=== PATIENT | male | born 1930 | race Caucasian/White ===

== ENCOUNTER 2017-10-02 05:53 | Outpatient (CLI) | payer MEDICARE, MEDICAID ==
[~2017-10-02] VITALS: Ht 160 cm; Wt 72.1 kg
[2017-10-02] MEDS ORDERED: TERA5CAP3 PO (14:42)
[2017-10-02] MEDS ORDERED: DUTA0.5C14 PO (14:42)
[2017-10-02] MEDS ORDERED: OMEP20TA7 PO (14:42)
== END 2017-10-02 14:44 ==
LOC: PREOP 05:53
PROVIDERS: ATTEND Internal Medicine Critical Care Medicine
DX: Z01.818 Encounter for other preprocedural examination (principal); D49.1 Neoplasm of unspecified behavior of respiratory system; R06.00 Dyspnea, unspecified; R09.02 Hypoxemia

== ENCOUNTER 2017-10-09 07:23 | Inpatient (IN) | payer MEDICARE, MEDICAID ==
[2017-10-09] VITALS (15 sets, daily range): BP systolic 100–125; BP diastolic 66–92
[~2017-10-09] VITALS: Ht 160 cm; Wt 68.5 kg
[~2017-10-09 07:23] MED LIST: DUTA0.5C14 PO; OMEP20TA7 PO; TERA5CAP3 PO
[2017-10-09] MEDS ORDERED: LACTATED RINGERS 1,000 ML IV ONE (07:53)
[2017-10-09] MEDS ORDERED: proPOfol 200 MG/20 ML (DIPRIVAN) VIAL IV ONE (07:53)
[2017-10-09] MEDS ORDERED: ROCURONIUM 50 MG/5 ML (ZEMURON) VIAL IV ONE (07:54)
[2017-10-09] MEDS ORDERED: ONDANSETRON 4 MG/2 ML (SDV) Z0FRAN ONE (07:54)
[2017-10-09] MEDS ORDERED: fentaNYL INJECTION 100 MCG/2 ML AMP ONE (07:54)
[2017-10-09] MEDS ORDERED: ACET-575 PO (07:55)
[2017-10-09] MEDS ORDERED: OMG1KC PO (07:55)
[2017-10-09] MEDS ORDERED: ASPI-999 PO (07:55)
[2017-10-09] MEDS ORDERED: LACTATED RINGERS 1,000 ML IV STA (07:55)
[2017-10-09] MEDS ORDERED: ACET-1783 PO (07:55)
--- NOTE | 2017-10-09 08:59 | Progress Note-Pre Operative ---
Pre-Operative Progress Note H&P Reviewed The H&P was reviewed, patient examined and no changes noted. Date Seen by Provider: Oct 09, 2017 Time Seen by Provider: 08:58 Date H&P Reviewed: Oct 09, 2017 Time H&P Reviewed: 08:59 Pre-Operative Diagnosis: lung mass NII DOOLEY DO Oct 09, 2017 08:59
[2017-10-09] MEDS ORDERED: NS IV 1000 ML 1,000 ML IV SCH (09:39)
[2017-10-09] MEDS ORDERED: ENOXAPARIN 40 MG/0.4 ML (LOVENOX) SYR SC SCH (10:00)
[2017-10-09 10:07] LABS: BASOPHILS % (AUTO) 0 % (0-10); EOSINOPHILS # (AUTO) 0.1 10^3/uL (0.0-0.3); EOSINOPHILS % (AUTO) 1 % (0-10); LYMPHOCYTES # (AUTO) 0.8 X 10^3 (1.0-4.0); LYMPHOCYTES % (AUTO) 13 % (12-44); MEAN CORPUSCULAR HEMOGLOBIN 29 PG (25-34); MEAN CORPUSCULAR HGB CONC 31 G/DL (32-36); MEAN CORPUSCULAR VOLUME 94 FL (80-99); MEAN PLATELET VOLUME 9.9 FL (7.4-10.4); MONOCYTES # (AUTO) 0.5 X 10^3 (0.0-1.0); MONOCYTES % (AUTO) 9 % (0-12); NEUTROPHILS # (AUTO) 4.8 X 10^3 (1.8-7.8); NEUTROPHILS % (AUTO) 78 % (42-75); PLATELET COUNT 169 10^3/uL (130-400); RED BLOOD COUNT 3.84 10^6/uL (4.35-5.85); RED CELL DISTRIBUTION WIDTH 15.7 % (10.0-14.5); WHITE BLOOD COUNT 6.1 10^3/uL (4.3-11.0)
[2017-10-09 10:25] LABS: ALANINE AMINOTRANSFERASE 19 U/L (0-55); ALBUMIN 3.4 GM/DL (3.2-4.5); ANION GAP 9 MMOL/L (5-14); ASPARTATE AMINO TRANSFERASE 21 U/L (5-34); BILIRUBIN,TOTAL 0.8 MG/DL (0.1-1.0); BLOOD UREA NITROGEN 17 MG/DL (7-18); BUN/CREATININE RATIO 17; CALCIUM 9.8 MG/DL (8.5-10.1); CARBON DIOXIDE 21 MMOL/L (21-32); CHLORIDE 105 MMOL/L (98-107); CREATININE SERUM 1.02 MG/DL (0.60-1.30); GFR ESTIMATED > 60; GLUCOSE 114 MG/DL (70-105); MAGNESIUM 1.8 MG/DL (1.8-2.4); POTASSIUM 4.2 MMOL/L (3.6-5.0); SODIUM 135 MMOL/L (135-145); TOTAL PROTEIN 6.9 GM/DL (6.4-8.2)
[2017-10-09 10:31] LABS: TROPONIN I < 0.30 NG/ML (<0.30)
--- NOTE | 2017-10-09 10:41 | Diagnostic Imaging Report ---
INDICATION: Shortness of breath. COMPARISON: None. FINDINGS: Upright portable view of the chest is obtained. Heart size is upper limits of normal. No pulmonary vascular congestion. There is no pneumothorax or pleural fluid suspected. There is, however, large area of consolidation involving the right mid and lower lung and there are background diffuse interstitial changes throughout both lungs which may represent diffuse interstitial infiltrate or edema. IMPRESSION: There is fairly extensive consolidation in the right middle and lower lobe consistent with pneumonia. Diffuse interstitial changes may be related to underlying interstitial edema or additional interstitial infiltrate. Short-term followup study is recommended Dictated by: Dictated on workstation # [id number]
[2017-10-09] MEDS ORDERED: MAGNESIUM 1 GM/100 ML IVPB 100 ML IV ONE (11:00)
--- NOTE | 2017-10-09 11:08 | Pulmonary Consultation ---
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 During lidocain SVN prior to sedation pt started having runs of Vtach up to 20 beat runs. PT denied CP or worsening SOB. Procedure was stopped pt did not receive sedation. I discussed patient with hospitalist group and Dr. Thompson and we decided to admit pt to ICU and check labs, EKG and echocardiogram. I am consulted for pulmonary management. Allergies and Home Medications Allergies Coded Allergies: No Known Drug Allergies (Unverified , 10/02/17) Home Medications Acetaminophen 650 Mg Tablet.er, 650 MG PO Q8H, (Reported) Acetaminophen/Diphenhydramine 1 Each Tablet, 2 EACH PO HS, (Reported) Aspirin 81 Mg Tab.chew, 81 MG PO DAILY, (Reported) Dutasteride 0.5 Mg Capsule, 0.5 MG PO DAILY, (Reported) [place] 3 Polyunsat Fatty Acids 1,000 Mg Cap, 1,000 MG PO DAILY, (Reported) Omeprazole 20 Mg Tablet.dr, 20 MG PO BID, (Reported) Terazosin HCl 5 Mg Capsule, 5 MG PO HS, (Reported) Past Qebcnkd-Udgfjv-Efjbxh Hx Patient Social History Alcohol Use: Denies Use Recreational Drug Use: No Smoking Status: Former Smoker Former Smoker, Quit: Oct 02, 1998 Recent Foreign Travel: No Contact w/Someone Who Travel: No Recent Infectious Disease Expo: No Recent Hopitalizations: No Physical Abuse: No Sexual Abuse: No Mistreated: No Fear: No Immunizations Up To Date Date of Pneumonia Vaccine: Oct 02, 2015 Date of Influenza Vaccine: Aug 12, 2017 Seasonal Allergies Seasonal Allergies: Yes Surgeries Surgeries: Gallbladder Respiratory Respiratory Disorders: Pneumonia Genitourinary Genitourinary Disorders: Prostate Problems Musculoskeletal Musculoskeletal Disorders: Arthritis HEENT Hearing Impairment: Hard of Hearing Cancer Cancer: Colon Type of Tx Receive: Surgical Intervention Review of Systems Time Seen by Provider: 11:15 Constitutional: Weakness, Malaise, No: Fever, Chills, Sweats, Other Eyes: No: Pain, Vision change, Conjunctivae inflammation, Eyelid inflammation, Other, Redness ENT: No: Ear pain, Ear discharge, Nose pain, Nose discharge, Nose congestion, Mouth pain, Mouth swelling, Throat pain, Throat swelling, Other Respiratory: Cough, Dry, Shortness of breath, SOB with excertion, Wheezing Cardiovascular: No: Chest Pain, Palpitations, Orthopnea, Paroxysmal Noc. Dyspnea, Edema, Lt Headedness, Other Neurological: Weakness Exam Exam Vital Signs Date Time Temp Pulse Resp B/P (MAP) Pulse Ox O2 Delivery O2 Flow Rate FiO2 10/09/17 09:00 24 10/09/17 09:00 97 Nasal Cannula 3.00 10/09/17 07:48 98.0 95 20 124/77 97 Room Air General Appearance: No Apparent Distress, WD/WN Neck: Full Range of Motion, Non Tender, Supple Respiratory: No Respiratory Distress, Decreased Breath Sounds Gastrointestinal: normal bowel sounds, non tender, soft, no organomegaly Neurologic/Psychiatric: Alert, Oriented x3 Skin: Warm/Dry, Pallor Lymphatic: No Adenopathy Results Lab Laboratory Tests 10/09/17 09:55 Assessment/Plan Assessment/Plan RML bronchus with MLA -Bronchoscopy with EBUS was cancelled secondary to Vtach runs -Check CXR and labs V tach -Cardiology is consulted -Check troponins, Echocardiogram, EKG and basic labs Hx of COPD -currently baseline continue to monitor 255 Clinical Quality Measures DVT/VTE Risk/Contraindication: Risk Factor Score Per Nursin RFS Level Per Nursing on Admit: 2=Moderate NII DOOLEY DO Oct 09, 2017 11:08
[2017-10-09] MEDS ORDERED: meTOprolol TARTRATE 25 MG (LOPRESSOR) TABLET PO NR (11:24)
--- NOTE | 2017-10-09 11:55 | History & Physical-Hospitalist ---
HPI History of Present Illness: HPI/Chief Complaint CC: Lung Mass with V-tach during pre-op for bronchoscopy HPI: This is a 86 yoWM pt who was transported to endoscopy with Dr. Roca at 0900 this am, but did not have the procedure due to runs of V-tach. Pt was admitted for cardiac monitoring. Doctor Chanelle Review: Pt was to have a bronchoscopy this am. Pt was having runs of detac before procedure. Labs were ordered to work this up Pt's supervisor burling and joining in Lauren, PCP in [place] If Dr. Nguyen is okay with procedure, Dr. Roca is okay to do it Pt is from [place], [place] Pt Review: Pt states he lives in [place], [place] with his and grandchildren. Pt states his has a brain tumor Pt states he has a home health nurse that sees him twice weekly Pt confirms Dr. Damian as PCP. Pt denies experiencing pain currently or flutter in his chest Physical exam stable. Lungs sound perfect Pt denies smoking or ETOH usage. 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 Pt states he has been since [address] was [address] Nguyen will see him and and echo will be done Pt confirms continuous O2 at home since 08/24/17 Scribed by Jacinta Blanco under the direct supervision of Dr. Israel. Source: patient Exam Limitations: no limitations Date Seen 10/09/17 Time Seen by Provider: 11:00 Attending Physician Declan Roca DO PCP Ady Damain MD Referring Physician Date of Admission Oct 09, 2017 at 09:15 Home Medications & Allergies Home Medications Reviewed patient Home Medication Reconciliation Form Allergies Allergies Coded Allergies No Known Drug Allergies (Jurlyoweqq25/22/17) Past Blmiyoo-Ytiavy-Wegnns Hx Patient Social History Marrital Status: Employed/Student: retired (farming) Alcohol Use: Denies Use Recreational Drug Use: No Smoking Status: Former Smoker Former Smoker, Quit: Oct 02, 1998 Recent Foreign Travel: No Contact w/other who traveled: No Recent Hopitalizations: No Recent Infectious Disease Expo: No Immunizations Up To Date Date of Pneumonia Vaccine: Oct 02, 2015 Date of Influenza Vaccine: Aug 12, 2017 Seasonal Allergies Seasonal Allergies: Yes Surgeries Yes Gallbladder Respiratory Yes COPD Cardiovascular Yes High Cholesterol Neurological No Genitourinary Yes Benign Prostatic Hyperpl, Prostate Problems Gastrointestinal Yes Gastroesophageal Reflux Musculoskeletal Yes Arthritis Endocrine History of Endocrine Disorders: No HEENT History of HEENT Disorders: No Hearing Impairment: Hard of Hearing Cancer Yes Colon Type of Treatment: Surgical Intervention Psychosocial History of Psychiatric Problem: No Integumentary History of Skin or Integumenta: No Blood Transfusions History of Blood Disorders: No Reviewed Nursing Assessment Reviewed/Agree w Nursing PMH: Yes Review of Systems Constitutional: see HPI EENTM: no symptoms reported Respiratory: short of breath, wheezing Cardiovascular: no symptoms reported Gastrointestinal: no symptoms reported Genitourinary: no symptoms reported Musculoskeletal: no symptoms reported Skin: no symptoms reported Psychiatric/Neurological: No Symptoms Reported All Other Systems Reviewed Negative Unless Noted: Yes Physical Exam Physical Exam Vital Signs Vital Sign - Last 12Hours 10/09/17 07:48 Temp 98.0 Pulse 95 Resp 20 B/P (MAP) 124/77 Pulse Ox 97 O2 Delivery Room Air Capillary Refill : General Appearance: No Apparent Distress, WD/WN, Chronically ill, Thin Eyes: Bilateral Eye Normal Inspection, Bilateral Eye PERRL HEENT: PERRL/EOMI, Normal ENT Inspection, Pharynx Normal Neck: Full Range of Motion, Normal Inspection, Non Tender, Supple, Carotid Bruit Respiratory: Chest Non Tender, No Accessory Muscle Use, No Respiratory Distress , Crackles, Decreased Breath Sounds, Wheezing Cardiovascular: No Edema, No Gallop, No JVD, No Murmur, Normal Peripheral Pulses, Irregularly Irregular Gastrointestinal: Normal Bowel Sounds, No Organomegaly, No Pulsatile Mass, Non Tender, Soft Back: Normal Inspection, No CVA Tenderness, No Vertebral Tenderness Extremity: Normal Capillary Refill, Normal Inspection, Normal Range of Motion, Non Tender, No Calf Tenderness, No Pedal Edema Neurologic/Psychiatric: Alert, Oriented x3, No Motor/Sensory Deficits, Normal Mood/Affect Skin: Normal Color, Warm/Dry Lymphatic: No Adenopathy Results Results/Procedures Lab Laboratory Tests 10/09/17 09:55 Assessment/Plan Admission Diagnosis Assessment: Asymptomatic Ventricular Tachycardia found on monitor in pre-op for bronchoscopy O2 dependent COPD RML lung mass in need of biopsy Previous smoker quit 20 yrs ago GERD BPH Assessment and Plan Plan: Monitor labs Cardiology consult O2 Nebs check ECHO Clinical Quality Measures DVT/VTE Risk/Contraindication: Risk Factor Score Per Nursin RFS Level Per Nursing on Admit: 2=Moderate BERE ISRAEL DO Oct 09, 2017 11:55
[2017-10-09] MEDS ORDERED: ASPI-983 PO (12:56)
--- NOTE | 2017-10-09 13:00 | Consultation-Cardiology ---
HPI-Cardiology Cardiology Consultation: Date of Consultation 10/09/17 Date of Admission Attending Physician Declan Roca DO Admitting Physician Ady Damian MD Consulting Physician Chip NGUYEN MD HPI: Time Seen by Provider: 13:00 Chief Complaint: Nonsustained VT This is a 86-year-old gentleman who has history of smoking and COPD. He has a central lung mass for which he was undergoing EBUS by Dr Roca. However during the procedure the patient started to have runs of nonsustained ventricular tachycardia. Patient continues to have short runs of nonsustained VT on telemetry and the ICU. He also complains of shortness of breath. He denies chest pain or palpitations. According to the patient his plastic surgery technician is in [place] and he has history of PAD with 2 stents in the left lower extremity. He denies any significant cardiac history. Records are still pending. Review of Systems-Cardiology Review of Systems Constitutional: No As described under HPI, No no symptoms reported, No chills, No fever, No lightheadedness, No malaise, No tiredness, No weight loss, No weight gain, No other Eyes: No As described under HPI, No no symptoms reported, No blindness, No blurred vision, No contact lenses, No drainage, No decreased acuity, No foreign body sensation, No glasses, No inflammation, No pain, No photophobia, No previous injury, No shadows, No tunnel vision, No other, No vision change Ears/Nose/Throat: No As described under HPI, No no symptoms reported, No chronic hearing loss, No epistaxis, No ear discharge, No ear pain, No loose teeth, No mouth pain, No mouth swelling, No nasal drainage, No nose pain, No recent hearing loss, No throat pain, No throat swelling, No ulcerations, No other Respiratory: shortness of breath Cardiovascular: No no symptoms reported, No As described under HPI, No chest pain, No edema, No irregular heart rate, No lightheadedness, No palpitations, No syncope, No other Gastrointestinal: No no symptoms reported, No As described under HPI, No abdomen distended, No abdominal pain, No blood streaked bowels, No constipation , No diarrhea, No difficulty swallowing, No nausea, No poor appetite, No poor fluid intake, No rectal bleeding, No vomiting, No other, No nausea/vomiting/ diarrhea, No stool coloration changes Genitourinary: No no symptoms reported, No As described under HPI, No burning, No dysuria, No discharge, No frequency, No flank pain, No hematuria, No incontinence, No pain, No urgency, No other, No urine frequency changes, No urine coloration changes Musculoskeletal: No no symptoms reported, No As describe under HPI, No back pain, No gout, No joint pain, No joint swelling, No muscle pain, No muscle stiffness, No neck pain, No other Skin: No no symptoms reported, No As described under HPI, No change in color, No change in hair/nails, No dryness, No lesions, No lumps, No rash, No other, No skin related problems, No ulcerations, No rash on exposed areas, No ulcerations on exposed areas Psychiatric/Neurological: No no symptoms reported, No As described under HPI, No anxiety, No depression, No emotional problems, No headache, No numbness, No pre-existing deficit, No seizure, No tingling, No tremors, No weakness, No other , No focal weakness, No syncope [id number]-Oxbncc Hx Patient Social History Marrital Status: Employed/Student: retired (farming) Alcohol Use: Denies Use Recreational Drug Use: No Smoking Status: Former Smoker Recent Foreign Travel: No Recent Infectious Disease Expo: No Immunizations Up To Date Date of Pneumonia Vaccine: Oct 02, 2015 Date of Influenza Vaccine: Aug 12, 2017 Past Medical History PMH As described under Assessment. Allergies and Home Medications Allergies Coded Allergies: No Known Drug Allergies (Unverified , 10/02/17) Home Medications Acetaminophen 650 Mg Tablet.er, 1,300 MG PO DAILY, (Reported) TAKES 2 (650MG) TABLETS Acetaminophen/Diphenhydramine 1 Each Tablet, 2 TAB PO HS, (Reported) Aspirin 81 Mg Tablet.dr, 81 MG PO DAILY, (Reported) Dutasteride 0.5 Mg Capsule, 0.5 MG PO DAILY, (Reported) [place] 3 Polyunsat Fatty Acids 1,000 Mg Cap, 1,000 MG PO BID, (Reported) Omeprazole 20 Mg Tablet.dr, 20 MG PO BID, (Reported) Terazosin HCl 5 Mg Capsule, 5 MG PO HS, (Reported) Physical Exam-Cardiology Physical Exam Vital Signs/I&O Vital Sign - Last 12Hours 10/09/17 10/09/17 10/09/1729/17 07:48 09:00 09:00 13:00 Temp 98.0 Pulse 95 82 Resp 20 24 B/P (MAP) 124/77 Pulse Ox 97 97 O2 Delivery Room Air Nasal Cannula O2 Flow Rate 3.00 Intake and Output 10/09/17 23:59 Intake Total 200 ml Output Total 400 ml Balance -200 ml Capillary Refill : Constitutional: No appears stated age, No AAO x 3, No apparent distress, No PERRL, No well-developed, No well-nourished, No other HEENT: No PERRL, No normal ENT inspection, No TMs normal, No pharynx normal, No scleral icterus (R), No scleral icterus (L), No pale conjunctivae (R), No pale conjunctivae (L), No photophobia, No TM abnormal (R), No TM abnormal (L), No pharyngeal erythema, No tonsillar exudate, No other, No discharge, No EOMI, No hearing is well preserved, No hard of hearing, No oral hygience is good, No ulceration, No xanthelasmas are seen Neck: No non-tender, No full range of motion, No supple, No normal inspection, No carotid bruit, No limited range of motion, No lymphadenopathy (R), No lymphadenopathy (L), No tender lateral, No tender midline, No thyromegaly, No other, No carotid pulses are 2 + bilaterally, No with good upstrokes Respiratory: No accessory muscle use, No respiratory distress, No chest tender , No chest expansion is symmetric, No chest is bilaterally symmetric, No lungs clear to percussion, No lungs clear to auscultation, No crackles, No rhonchi, No rales, No stridor, No wheezing, No pleural rub, No other Cardiovascular: regular rate-rhythm, S1 and S2 Gastrointestinal: No tender, No soft, No round, No distended, No pulsatile mass , No organomegaly, No guarding, No rebound, No tenderness, No hernia, No mass, No audible bowel sounds, No abnormal bowel sounds, No abdominal bruits, No spleenomegaly, No other Rectal: deferred Extremities: No normal range of motion, No non-tender, No normal inspection, No pedal edema, No calf tenderness, No normal capillary refill, No pelvis stable , No calf tenderness, No inflammation, No pedal edema, No slow capillary refill , No swelling, No other, No abrasion, No clubbing, No cyanosis, No ecchymosis, No laceration, No no lower extremity edema bilateral, No significant edema, No tenderness, No wound Neurologic/Psychiatric: No visual communications instructor II-XII nml as tested, No no motor/sensory deficits, No alert, No normal mood/affect, No oriented x 3, No abnormal cerebellar tests, No abnormal visual communications instructor II-XII, No abnormal gait, No aphasia, No EOM palsy, No facial droop, No motor weakness, No sensory deficit, No depressed affect, No disoriented x 3, No other, No grossly intact, No power is 5/5 both on sides Skin: No normal color, No warm/dry, No cyanosis, No cool, No diaphoresis, No damp, No ecchymosis, No jaundice, No mottled, No pallor, No rash, No tattoos/ piercings, No ulcerations, No rash on exposed areas, No ulcerations on exposed areas, No other Data Review Labs Laboratory Tests 10/09/17 09:55: White Blood Count 6.1, Red Blood Count 3.84L, Hemoglobin 11.2L, Hematocrit 36L, Mean Corpuscular Volume 94, Mean Corpuscular Hemoglobin 29, Mean Corpuscular Hemoglobin Concent 31L, Red Cell Distribution Width 15.7H, Platelet Count 169, Mean Platelet Volume 9.9, Neutrophils (%) (Auto) 78H, Lymphocytes (%) (Auto) 13 , Monocytes (%) (Auto) 9, Eosinophils (%) (Auto) 1, Basophils (%) (Auto) 0, Neutrophils # (Auto) 4.8, Lymphocytes # (Auto) 0.8L, Monocytes # (Auto) 0.5, Eosinophils # (Auto) 0.1, Basophils # (Auto) 0.0, Sodium Level 135, Potassium Level 4.2, Chloride Level 105, Carbon Dioxide Level 21, Anion Gap 9, Blood Urea Nitrogen 17, Creatinine 1.02, Estimat Glomerular Filtration Rate > 60, BUN/ Creatinine Ratio 17, Glucose Level 114H, Calcium Level 9.8, Phosphorus Level 3.0 , Magnesium Level 1.8, Total Bilirubin 0.8, Aspartate Amino Transf (AST/SGOT) 21 , Alanine Aminotransferase (ALT/SGPT) 19, Alkaline Phosphatase 102, Troponin I < 0.30, B-Type Natriuretic Peptide 2572.4H, Total Protein 6.9, Albumin 3.4 ECG Impression ECG Initial ECG Rhythm: Normal Sinus, PVC A/P-Cardiology Assessment/Admission Diagnosis Lung mass, COPD, shortness of breath, nonsustained ventricular tachycardia, hypomagnesemia, PAD Plan Nonsustained ventricular tachycardia: Will try to get all records from [place]. We'll request an echocardiogram to assess ejection fraction. We'll recommend metoprolol 25 mg 3 times a day. We'll also electrolyte repletion with potassium and magnesium. Keep potassium over 4 and magnesium over 2. If ventricular ectopy settles overnight Dr. Roca can proceed with the procedure tomorrow. If patient continues to have frequent runs of nonsustained VT, further cardiac evaluation may be required with or without antiarrhythmics. Acute congestive heart failure: Significantly elevated BNP. Still not sure whether it is systolic or diastolic in origin. Will check echocardiogram. Give IV Lasix. PAD: Continue outpatient medical therapy. Lung mass/COPD: Defer to primary team. Thank you for your consultation. Please call me if you have any questions. Taiwo Nguyen MD, FACP, FACC, FSCAI, FHRS, CCDS Interventional Cardiology Cardiac Electrophysiology Vascular Medicine and Endovascular Interventions Clinical Quality Measures DVT/VTE Risk/Contraindication: Risk Factor Score Per Nursin RFS Level Per Nursing on Admit: 2=Moderate Chip NGUYEN MD Oct 09, 2017 13:00
[2017-10-09] MEDS ORDERED: FUROSEMIDE 40 MG/4 ML INJ (LASIX) IVP NR ×2 (14:00→17:23)
[2017-10-09] MEDS ORDERED: KCL 20 MEQ TAB (K-DUR) PO NR (14:00)
[2017-10-09] MEDS ORDERED: CLOPIDOGREL 300 MG (PLAVIX) TABLET PO NR (17:22)
[2017-10-09] MEDS ORDERED: ENOXAPARIN 80 MG/0.8 ML (LOVENOX) SYR SC SCH (18:00)
[2017-10-09] MEDS: PANTOPRAZOLE 20 MG TABLET (PROTONIX) PO SCH (21:33)
[2017-10-09] MEDS: TERAZOSIN 5 MG (HYTRIN) CAPSULE PO SCH (21:33)
[2017-10-09] MEDS: ACETAMINOPHEN 500 MG TAB (TYLENOL) PO SCH (21:33)
[2017-10-09] MEDS: meTOprolol TARTRATE 25 MG (LOPRESSOR) TABLET PO SCH (21:33)
[2017-10-09] MEDS: ENOXAPARIN 80 MG/0.8 ML (LOVENOX) SYR SC SCH (21:33)
[2017-10-09] MEDS: diphenhydrAMINE 25 MG TAB (BENADRYL) PO SCH (21:33)
[2017-10-09] MEDS: OMEGA 3 (FISH OIL) 1000 MG CAP PO SCH (21:34)
[2017-10-10] VITALS (26 sets, daily range): BP systolic 103–128; BP diastolic 47–75
[2017-10-10 05:05] LABS: BASOPHILS % (AUTO) 0 % (0-10); EOSINOPHILS % (AUTO) 1 % (0-10); LYMPHOCYTES # (AUTO) 0.9 X 10^3 (1.0-4.0); LYMPHOCYTES % (AUTO) 12 % (12-44); MEAN CORPUSCULAR HEMOGLOBIN 29 PG (25-34); MEAN CORPUSCULAR HGB CONC 32 G/DL (32-36); MEAN CORPUSCULAR VOLUME 92 FL (80-99); MEAN PLATELET VOLUME 9.9 FL (7.4-10.4); MONOCYTES # (AUTO) 0.6 X 10^3 (0.0-1.0); MONOCYTES % (AUTO) 8 % (0-12); NEUTROPHILS # (AUTO) 5.9 X 10^3 (1.8-7.8); NEUTROPHILS % (AUTO) 79 % (42-75); PLATELET COUNT 196 10^3/uL (130-400); RED BLOOD COUNT 4.13 10^6/uL (4.35-5.85); WHITE BLOOD COUNT 7.5 10^3/uL (4.3-11.0)
[2017-10-10 05:40] LABS: CALCIUM 10.1 MG/DL (8.5-10.1); CREATININE SERUM 1.4 MG/DL (0.60-1.30); MAGNESIUM 2.2 MG/DL (1.8-2.4); POTASSIUM 4.8 MMOL/L (3.6-5.0)
[2017-10-10 05:53] LABS: TROPONIN I 0.61 NG/ML (<0.30)
[2017-10-10] MEDS ORDERED: HEParin (CATH LAB) 2,000 ML IV ONE (06:44)
[2017-10-10] MEDS ORDERED: CLOPIDOGREL 75 MG (PLAVIX) TABLET PO NR (07:00)
--- NOTE | 2017-10-10 07:28 | Diagnostic Imaging Report ---
INDICATION: Pneumonia. Portable chest 4:49 a.m. FINDINGS: There are alveolar infiltrates in the periphery of the right lung and at the right medial lung base. There is also some left perihilar infiltrate. These are unchanged from the previous days' comparison exam. IMPRESSION: Bilateral consolidating infiltrate suspicious for pneumonia. Dictated by: Dictated on workstation # [id number]
[2017-10-10 07:36] LABS: INR 1.3 (0.8-1.4)
[2017-10-10] MEDS: PANTOPRAZOLE 20 MG TABLET (PROTONIX) PO SCH ×2 (07:58→21:57)
[2017-10-10] MEDS: meTOprolol TARTRATE 25 MG (LOPRESSOR) TABLET PO SCH ×3 (07:59→21:57)
[2017-10-10] MEDS: OMEGA 3 (FISH OIL) 1000 MG CAP PO SCH ×2 (07:59→21:57)
[2017-10-10] MEDS: ASPIRIN E.C. 81 MG (ECOTRIN) TAB PO SCH (08:00)
[2017-10-10] MEDS: ACETAMINOPHEN 325 MG TABLET/CAPLET (TYLENOL) PO SCH (08:01)
[2017-10-10] MEDS: ENOXAPARIN 80 MG/0.8 ML (LOVENOX) SYR SC SCH (08:02)
--- NOTE | 2017-10-10 08:16 | Pulmonary Progress Note ---
Subjective Time Seen by Provider: 08:16 Subjective/Events-last exam PT feels better today. Cardiology is following. Exam Exam Vital Signs Date Time Temp Pulse Resp B/P (MAP) Pulse Ox O2 Delivery O2 Flow Rate FiO2 10/10/17 06:00 85 28 121/75 97 Nasal Cannula 3.00 10/10/17 05:00 81 22 118/75 97 Nasal Cannula 3.00 10/10/17 04:00 75 25 113/74 99 Nasal Cannula 3.00 10/10/17 04:00 96 Nasal Cannula 3.00 10/10/17 04:00 98.1 10/10/17 03:00 75 28 114/71 99 Nasal Cannula 3.00 10/10/17 02:00 79 34 107/69 99 Nasal Cannula 3.00 10/10/17 01:00 72 10/10/17 01:00 71 27 103/66 98 Nasal Cannula 3.00 10/10/17 00:00 98.9 10/10/17 00:00 96 Nasal Cannula 3.00 10/10/17 00:00 76 25 105/71 98 Nasal Cannula 3.00 10/09/17 23:00 84 13 104/92 98 Nasal Cannula 3.00 10/09/17 22:00 85 31 119/82 98 Nasal Cannula 3.00 10/09/17 21:00 95 35 114/75 97 Nasal Cannula 3.00 10/09/17 20:00 98.1 87 33 112/83 98 Nasal Cannula 3.00 10/09/17 20:00 96 Nasal Cannula 3.00 10/09/17 19:00 93 10/09/17 19:00 89 30 111/70 90 Nasal Cannula 3.00 10/09/17 18:00 90 30 106/76 98 Nasal Cannula 3.00 10/09/17 17:00 96 24 111/73 99 Nasal Cannula 3.00 10/09/17 16:00 86 14 109/71 98 Nasal Cannula 3.00 10/09/17 15:00 85 105/66 98 Nasal Cannula 3.00 10/09/17 14:00 78 31 100/71 98 Nasal Cannula 3.00 10/09/17 13:00 82 10/09/17 13:00 82 27 103/70 99 Nasal Cannula 3.00 10/09/17 12:00 98 35 121/83 98 Nasal Cannula 3.00 10/09/17 11:00 98 27 119/77 100 Nasal Cannula 3.00 10/09/17 10:00 106 22 125/77 98 Nasal Cannula 3.00 10/09/17 09:00 24 10/09/17 09:00 97 Nasal Cannula 3.00 General Appearance: No Apparent Distress, WD/WN, Chronically ill, Thin HEENT: PERRL/EOMI, Normal ENT Inspection, Pharynx Normal Neck: Full Range of Motion, Normal Inspection, Non Tender, Supple, Carotid Bruit Respiratory: Chest Non Tender, No Accessory Muscle Use, No Respiratory Distress , Crackles, Decreased Breath Sounds, Wheezing Cardiovascular: No Edema, No Gallop, No JVD, No Murmur, Normal Peripheral Pulses, Irregularly Irregular Gastrointestinal: normal bowel sounds, non tender, soft, no organomegaly Extremity: Normal Capillary Refill, Normal Inspection, Normal Range of Motion, Non Tender, No Calf Tenderness, No Pedal Edema Neurologic/Psychiatric: Alert, Oriented x3, No Motor/Sensory Deficits, Normal Mood/Affect Skin: Normal Color, Warm/Dry Lymphatic: No Adenopathy Results Lab Laboratory Tests 10/09/17 09:55 10/10/17 04:55 Assessment/Plan Assessment/Plan RML bronchus with MLA -Bronchoscopy with EBUS was cancelled secondary to Vtach runs 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 V tach nonsustained -Cardiology is consulted Hx of COPD -currently baseline continue to monitor Discussed with Dr. Nguyen and echo shows severe cardiomyopathy with EF of 10-15% . Possible heart cath today. Will postpone bronch until cardiology is ok with proceeding. 233 Clinical Quality Measures DVT/VTE Risk/Contraindication: Risk Factor Score Per Nursin RFS Level Per Nursing on Admit: 2=Moderate NII DOOLEY DO Oct 10, 2017 08:16
[2017-10-10] MEDS: FINASTERIDE (PROSCAR) 5 MG TAB PO SCH (09:00)
--- NOTE | 2017-10-10 11:40 | Progress Note-Hospitalist ---
Progress Note HPI/CC on Admission CC: Lung Mass with V-tach during pre-op for bronchoscopy HPI: This is a 86 yoWM pt who was transported to endoscopy with Dr. Roca at 0900 this am, but did not have the procedure due to runs of V-tach. Pt was admitted for cardiac monitoring. Doctor Roca Review: Pt was to have a bronchoscopy this am. Pt was having runs of detac before procedure. Labs were ordered to work this up Pt's cash checker in [place], PCP in [place] If Dr. Nguyen is okay with procedure, Dr. Roca is okay to do it Pt is from [place], [place] Pt Review: Pt states he lives in [place], [place] with his and grandchildren. Pt states his has a brain tumor Pt states he has a home health nurse that sees him twice weekly Pt confirms Dr. Damian as PCP. Pt denies experiencing pain currently or flutter in his chest Physical exam stable. Lungs sound perfect Pt denies smoking or ETOH usage. 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 Pt states he has been since [address] Nguyen will see him and and echo will be done Pt confirms continuous O2 at home since 08/24/17 Scribed by Jacinta Blanco under the direct supervision of Dr. Israel. 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 Roca Review: Dr. Nguyen reported that the pt's EF was 10-15% and troponin was positive. Pt will have a cath soon and the bronchoscopy will have to wait. integration architect: Dr. Nguyen would like to cath, but may need open heart bypass surgery Pt's and grandson will be coming in to discuss treatment. Patient Interview: Pt states he is good and is breathing better. Pt denies experiencing pain. Pt confirms seeing the cash checker Physical exam stable. Lungs sound perfect. 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 Possible open heart surgery? Scribed by Jacinta Blanco under direct supervision of Dr. Georgia Israel. GEORGIA ISRAEL DO Oct 10, 2017 11:40
--- NOTE | 2017-10-10 12:14 | Cardiology Progress Note ---
Cardiology SOAP Progress Note Subjective: significantly improved shortness of breath Objective: I&O/Vital Signs Vital Sign - Last 12Hours 10/10/17 10/10/17 10/10/17 10/10/17 01:00 01:00 02:00 03:00 Pulse 71 72 79 75 Resp 27 34 28 B/P (MAP) 103/66 107/69 114/71 Pulse Ox 98 99 99 O2 Delivery Nasal Cannula Nasal Cannula Nasal Cannula O2 Flow Rate 3.00 3.00 3.00 10/10/17 10/10/17 10/10/17 10/10/17 04:00 04:00 04:00 05:00 Temp 98.1 Pulse 75 81 Resp 25 22 B/P (MAP) 113/74 118/75 Pulse Ox 96 99 97 O2 Delivery Nasal Cannula Nasal Cannula Nasal Cannula O2 Flow Rate 3.00 3.00 3.00 10/10/17 10/10/17 10/10/17 10/10/17 06:00 07:00 07:00 08:00 Pulse 85 81 81 Resp 28 29 B/P (MAP) 121/75 123/73 Pulse Ox 97 98 98 O2 Delivery Nasal Cannula Nasal Cannula Nasal Cannula O2 Flow Rate 3.00 3.00 3.00 10/10/17 10/10/17 10/10/17 10/10/17 08:00 09:00 10:00 11:00 Pulse 82 64 61 59 Resp 32 26 33 22 B/P (MAP) 121/71 112/66 (81) 106/65 (79) 109/62 (78) Pulse Ox 98 100 98 100 O2 Delivery Nasal Cannula Nasal Cannula Nasal Cannula Nasal Cannula O2 Flow Rate 3.00 3.00 3.00 3.00 Weight (Pounds): 150 Weight (Ounces): 0.0 Weight (Calculated Kilograms): 68.397262 Constitutional: No appears stated age, No AAO x 3, No apparent distress, No PERRL, No well-developed, No well-nourished, No other Respiratory: No accessory muscle use, No respiratory distress, No chest tender , No chest expansion is symmetric, No chest is bilaterally symmetric, No lungs clear to percussion, No lungs clear to auscultation, No crackles, No rhonchi, No rales, No stridor, No wheezing, No pleural rub, No other Cardiovascular: regular rate-rhythm, S1 and S2 Gastrointestional: No tender, No soft, No round, No distended, No pulsatile mass, No organomegaly, No guarding, No rebound, No tenderness, No hernia, No mass, No audible bowel sounds, No abnormal bowel sounds, No abdominal bruits, No spleenomegaly, No other Extremities: No normal range of motion, No non-tender, No normal inspection, No pedal edema, No calf tenderness, No normal capillary refill, No pelvis stable , No calf tenderness, No inflammation, No pedal edema, No slow capillary refill , No swelling, No other, No abrasion, No clubbing, No cyanosis, No ecchymosis, No laceration, No no lower extremity edema bilateral, No significant edema, No tenderness, No wound Neurologic/Psychiatric: No school director II-XII nml as tested, No no motor/sensory deficits, No alert, No normal mood/affect, No oriented x 3, No abnormal cerebellar tests, No abnormal school director II-XII, No abnormal gait, No aphasia, No EOM palsy, No facial droop, No motor weakness, No sensory deficit, No depressed affect, No disoriented x 3, No other, No grossly intact, No power is 5/5 both on sides Skin: No normal color, No warm/dry, No cyanosis, No cool, No diaphoresis, No damp, No ecchymosis, No jaundice, No mottled, No pallor, No rash, No tattoos/ piercings, No ulcerations, No rash on exposed areas, No ulcerations on exposed areas, No other Results/Procedures: Labs Laboratory Tests 10/09/17 15:30: Troponin I 0.35*H 10/10/17 04:55: Troponin I 0.61*H, White Blood Count 7.5, Red Blood Count 4.13L, Hemoglobin 12.1L, Hematocrit 38L, Mean Corpuscular Volume 92, Mean Corpuscular Hemoglobin 29, Mean Corpuscular Hemoglobin Concent 32, Red Cell Distribution Width 16.0H, Platelet Count 196, Mean Platelet Volume 9.9, Neutrophils (%) (Auto) 79H, Lymphocytes (%) (Auto) 12, Monocytes (%) (Auto) 8, Eosinophils (%) (Auto) 1, Basophils (%) (Auto) 0, Neutrophils # (Auto) 5.9, Lymphocytes # (Auto) 0.9L, Monocytes # (Auto) 0.6, Eosinophils # (Auto) 0.0, Basophils # (Auto) 0.0, Prothrombin Time 16.0H, INR Comment 1.3, Activated Partial Thromboplast Time 33 , Sodium Level 139, Potassium Level 4.8, Chloride Level 104, Carbon Dioxide Level 22, Anion Gap 13, Blood Urea Nitrogen 22H, Creatinine 1.40H, Estimat Glomerular Filtration Rate 48, BUN/Creatinine Ratio 16, Glucose Level 100, Calcium Level 10.1, Phosphorus Level 4.1, Magnesium Level 2.2 A/P: Assessment/Dx: Lung mass, COPD, shortness of breath, nonsustained ventricular tachycardia, hypomagnesemia, PAD, acute systolic congestive heart failure Plan: Nonsustained ventricular tachycardia: no further episodes overnight. Continue metoprolol 25 mg 3 times a day. Keep potassium over 4 and magnesium over 2. will require coronary angiography. Non-STEMI: Continue aspirin, statin, Plavix. Hold Lovenox for coronary angiography via femoral access tomorrow. Patient had an abnormal Lucho's test therefore we could not perform it today via right radial approach. Acute systolic congestive heart failure: Significantly elevated BNP. continue IV Lasix 40 mg daily. Patient is -3100 mL overnight. We will need to be less aggressive with diuresis as patient had mild elevation of creatinine today. PAD: Continue outpatient medical therapy. kidney insufficiency: Could be secondary to diuresis well decrease the dose of IV Lasix to 40 mg daily. Lung mass/COPD: Defer to primary team. Thank you for your consultation. Please call me if you have any questions. Taiwo Nguyen MD, FACP, FACC, FSCAI, FHRS, CCDS Interventional Cardiology Cardiac Electrophysiology Vascular Medicine and Endovascular Interventions Chip NGUYEN MD Oct 10, 2017 12:14 pm
[2017-10-10] MEDS: ACETAMINOPHEN 500 MG TAB (TYLENOL) PO SCH (21:57)
[2017-10-10] MEDS: TERAZOSIN 5 MG (HYTRIN) CAPSULE PO SCH (21:57)
[2017-10-10] MEDS: diphenhydrAMINE 25 MG TAB (BENADRYL) PO SCH (21:57)
[2017-10-11] VITALS (16 sets, daily range): BP systolic 83–115; BP diastolic 49–73
[2017-10-11 04:51] LABS: BASOPHILS % (AUTO) 0 % (0-10); EOSINOPHILS # (AUTO) 0.1 10^3/uL (0.0-0.3); EOSINOPHILS % (AUTO) 2 % (0-10); LYMPHOCYTES # (AUTO) 1.3 X 10^3 (1.0-4.0); LYMPHOCYTES % (AUTO) 19 % (12-44); MEAN CORPUSCULAR HEMOGLOBIN 29 PG (25-34); MEAN CORPUSCULAR HGB CONC 32 G/DL (32-36); MEAN CORPUSCULAR VOLUME 92 FL (80-99); MEAN PLATELET VOLUME 10.3 FL (7.4-10.4); MONOCYTES # (AUTO) 0.6 X 10^3 (0.0-1.0); MONOCYTES % (AUTO) 8 % (0-12); NEUTROPHILS % (AUTO) 71 % (42-75); PLATELET COUNT 197 10^3/uL (130-400); RED BLOOD COUNT 3.96 10^6/uL (4.35-5.85); RED CELL DISTRIBUTION WIDTH 16.2 % (10.0-14.5)
[2017-10-11 05:27] LABS: CALCIUM 9.8 MG/DL (8.5-10.1); CREATININE SERUM 1.45 MG/DL (0.60-1.30); MAGNESIUM 1.9 MG/DL (1.8-2.4); PHOSPHORUS 3.4 MG/DL (2.3-4.7); POTASSIUM 4.5 MMOL/L (3.6-5.0)
[2017-10-11] MEDS ORDERED: fentaNYL INJECTION 100 MCG/2 ML AMP ONE (06:51)
[2017-10-11] MEDS ORDERED: MIDAZOLAM 2 MG/2 ML (VERSED) VIAL ONE (06:52)
--- NOTE | 2017-10-11 07:03 | Pulmonary Progress Note ---
Subjective Time Seen by Provider: 07:03 Subjective/Events-last exam Pt feels improved. No complications noted. Exam Exam Vital Signs Date Time Temp Pulse Resp B/P (MAP) Pulse Ox O2 Delivery O2 Flow Rate FiO2 10/11/17 06:00 73 21 115/69 (84) 100 Nasal Cannula 2.00 10/11/17 05:00 72 25 111/65 (80) 98 Nasal Cannula 2.00 10/11/17 04:00 98.8 10/11/17 04:00 98 Nasal Cannula 2.00 10/11/17 04:00 70 30 111/73 (86) 99 Nasal Cannula 2.00 10/11/17 03:00 75 22 108/63 (78) 98 Nasal Cannula 2.00 10/11/17 02:00 75 36 105/69 (81) 98 Nasal Cannula 2.00 10/11/17 01:00 73 10/11/17 01:00 71 22 101/62 (75) 99 Nasal Cannula 2.00 10/11/17 00:00 80 25 102/67 (79) 96 Nasal Cannula 2.00 10/11/17 00:00 98 Nasal Cannula 2.00 10/10/17 23:54 99.1 78 24 113/74 (87) 96 Nasal Cannula 2.00 10/10/17 23:00 80 28 113/74 (87) 98 Nasal Cannula 2.00 10/10/17 22:00 77 31 114/68 (83) 94 Nasal Cannula 2.00 10/10/17 21:00 76 29 107/67 (80) 97 Nasal Cannula 2.00 10/10/17 20:41 Nasal Cannula 2.00 10/10/17 20:00 89 33 128/70 (89) 88 Nasal Cannula 2.00 10/10/17 20:00 99 Nasal Cannula 2.00 10/10/17 19:29 97.6 63 22 109/67 (81) 99 Nasal Cannula 2.00 10/10/17 19:00 63 10/10/17 19:00 71 31 109/67 (81) 98 Nasal Cannula 2.00 10/10/17 18:00 85 33 112/67 (82) 96 Nasal Cannula 3.00 10/10/17 17:00 72 41 117/47 (70) 99 Nasal Cannula 3.00 10/10/17 16:00 96 Nasal Cannula 3.00 10/10/17 16:00 75 30 114/65 (81) 98 Nasal Cannula 3.00 10/10/17 15:00 63 23 107/61 (76) 100 Nasal Cannula 3.00 10/10/17 14:00 70 28 110/66 (81) 100 Nasal Cannula 3.00 10/10/17 13:00 78 30 125/71 (89) 96 Nasal Cannula 3.00 10/10/17 12:00 98.6 10/10/17 12:00 60 30 104/63 (77) 98 Nasal Cannula 3.00 10/10/17 12:00 96 Nasal Cannula 3.00 10/10/17 11:00 59 22 109/62 (78) 100 Nasal Cannula 3.00 10/10/17 10:00 61 33 106/65 (79) 98 Nasal Cannula 3.00 10/10/17 09:00 64 26 112/66 (81) 100 Nasal Cannula 3.00 10/10/17 08:00 82 32 121/71 98 Nasal Cannula 3.00 10/10/17 08:00 98 Nasal Cannula 3.00 10/10/17 07:00 97.8 10/10/17 07:00 81 29 123/73 98 Nasal Cannula 3.00 10/10/17 07:00 81 General Appearance: No Apparent Distress, WD/WN, Chronically ill, Thin HEENT: PERRL/EOMI, Normal ENT Inspection, Pharynx Normal Neck: Full Range of Motion, Normal Inspection, Non Tender, Supple, Carotid Bruit Respiratory: Chest Non Tender, No Accessory Muscle Use, No Respiratory Distress , Crackles, Decreased Breath Sounds, Wheezing Cardiovascular: No Edema, No Gallop, No JVD, No Murmur, Normal Peripheral Pulses, Irregularly Irregular Gastrointestinal: normal bowel sounds, non tender, soft, no organomegaly Extremity: Normal Capillary Refill, Normal Inspection, Normal Range of Motion, Non Tender, No Calf Tenderness, No Pedal Edema Neurologic/Psychiatric: Alert, Oriented x3, No Motor/Sensory Deficits, Normal Mood/Affect Skin: Normal Color, Warm/Dry Lymphatic: No Adenopathy Results Lab Laboratory Tests 10/09/17 09:55 10/10/17 04:55 10/11/17 04:35 Assessment/Plan Assessment/Plan RML bronchus with MLA -Bronchoscopy with EBUS was cancelled secondary to Vtach runs -Will schedule CT scan for tomorrow. Pulmonary infiltration secondary to mass and pulmonary edema - No leukocytosis, No fever -No need for Antibiotic therapy. 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 -aspirin, statin, Plavix. V tach nonsustained -Cardiology is consulted Acute renal insufficiency -Monitor -start IVF at 50cc/hr Hx of COPD -currently baseline continue to monitor Discussed with Dr. Nguyen and echo shows severe cardiomyopathy with EF of 10-15% . Possible heart cath today. Will postpone bronch until cardiology is ok with proceeding. 233 Clinical Quality Measures DVT/VTE Risk/Contraindication: Risk Factor Score Per Nursin RFS Level Per Nursing on Admit: 2=Moderate NII DOOLEY DO Oct 11, 2017 07:03
[2017-10-11] MEDS ORDERED: NS IV 1000 ML 1,000 ML IV SCH ×2 (07:11→08:58)
[2017-10-11] MEDS: OMEGA 3 (FISH OIL) 1000 MG CAP PO SCH (07:33)
[2017-10-11] MEDS: meTOprolol TARTRATE 25 MG (LOPRESSOR) TABLET PO SCH (07:34)
[2017-10-11] MEDS: ASPIRIN E.C. 81 MG (ECOTRIN) TAB PO SCH (07:34)
[2017-10-11] MEDS: ACETAMINOPHEN 325 MG TABLET/CAPLET (TYLENOL) PO SCH (07:34)
[2017-10-11] MEDS: PANTOPRAZOLE 20 MG TABLET (PROTONIX) PO SCH (07:34)
[2017-10-11] MEDS: FINASTERIDE (PROSCAR) 5 MG TAB PO SCH (07:35)
--- NOTE | 2017-10-11 08:00 | Diagnostic Imaging Report ---
Portable upright radiograph of the chest. INDICATION: Dyspnea. COMPARISON: 10/10/2017. FINDINGS: There are bibasilar patchy infiltrates and lateral right mid hemithorax opacity that is pleural based suggestive of a loculated effusion. The heart size is moderately enlarged. No pneumothorax. The mediastinum and vanesa appear unchanged. IMPRESSION: Similar patchy bilateral predominantly lower lung zone infiltrates. There is concern for loculated effusion along the lateral mid right hemithorax. Dictated by: Dictated on workstation # [id number]
--- NOTE | 2017-10-11 08:55 | Cardiac Procedure Note-CS/ASA ---
Pre-Procedure Note Pre-Op Procedure Note H&P Reviewed The H&P was reviewed, patient examined and no changes noted. Date H&P Reviewed: Oct 11, 2017 Time H&P Reviewed: 08:00 Conscious Sedation Pre-Proced Time Reviewed: 08:00 ASA Class: 3 Airway Mallampati Classification: (bad river band appropriate class) I. II. III, IV Lungs Heart ASA score ASA 1: a normal healthy patient ASA 2: a patient with a mild systemic disease (mid diabetes, controlled hypertension, obesity ASA 3: a patient with a severe systemic disease that limits activity (angina , COPD, prior Myocardial infarction) ASA 4: a patient with an incapacitating disease that is a constant threat to life (CHF, renal failure) ASA 5: a moribund patient not expected to survive 24 hrs. (ruptured aneurysm) ASA 6: a declared brain patient whose organs are being harvested. For emergent operations, add the letter E after the classification Grade 1 Sedation Plan: Analgesia, Amnesia, Plan communicated to team members, Discussed options with patient/fam, Discussed risks with patient/fam Note The patient is an appropriate candidate to undergo the planned procedure, sedation, and anesthesia. The patient immediately re-assessed prior to indication. Chip GEE MD Oct 11, 2017 8:55 am
--- NOTE | 2017-10-11 08:55 | Cardiology Progress Note ---
Cardiology SOAP Progress Note Subjective: improved symptoms. Objective: I&O/Vital Signs Vital Sign - Last 12Hours 10/10/17 10/10/17 10/10/17 10/11/17 22:00 23:00 23:54 00:00 Temp 99.1 Pulse 77 80 78 Resp 31 28 24 B/P (MAP) 114/68 (83) 113/74 (87) 113/74 (87) Pulse Ox 94 98 96 98 O2 Delivery Nasal Cannula Nasal Cannula Nasal Cannula Nasal Cannula O2 Flow Rate 2.00 2.00 2.00 2.00 10/11/17 10/11/17 10/11/17 10/11/17 00:00 01:00 01:00 02:00 Pulse 80 71 73 75 Resp 25 22 36 B/P (MAP) 102/67 (79) 101/62 (75) 105/69 (81) Pulse Ox 96 99 98 O2 Delivery Nasal Cannula Nasal Cannula Nasal Cannula O2 Flow Rate 2.00 2.00 2.00 10/11/17 10/11/17 10/11/17 10/11/17 03:00 04:00 04:00 04:00 Temp 98.8 Pulse 75 70 Resp 22 30 B/P (MAP) 108/63 (78) 111/73 (86) Pulse Ox 98 99 98 O2 Delivery Nasal Cannula Nasal Cannula Nasal Cannula O2 Flow Rate 2.00 2.00 2.00 10/11/17 10/11/17 10/11/17 10/11/17 05:00 06:00 07:00 07:00 Pulse 72 73 73 72 Resp 25 21 26 B/P (MAP) 111/65 (80) 115/69 (84) 113/66 (82) Pulse Ox 98 100 99 O2 Delivery Nasal Cannula Nasal Cannula Nasal Cannula O2 Flow Rate 2.00 2.00 2.00 Weight (Pounds): 151 Weight (Ounces): 0.0 Weight (Calculated Kilograms): 68.740492 Constitutional: No appears stated age, No AAO x 3, No apparent distress, No PERRL, No well-developed, No well-nourished, No other Respiratory: No accessory muscle use, No respiratory distress, No chest tender , No chest expansion is symmetric, No chest is bilaterally symmetric, No lungs clear to percussion, No lungs clear to auscultation, No crackles, No rhonchi, No rales, No stridor, No wheezing, No pleural rub, No other Cardiovascular: regular rate-rhythm, S1 and S2 Gastrointestional: No tender, No soft, No round, No distended, No pulsatile mass, No organomegaly, No guarding, No rebound, No tenderness, No hernia, No mass, No audible bowel sounds, No abnormal bowel sounds, No abdominal bruits, No spleenomegaly, No other Extremities: No normal range of motion, No non-tender, No normal inspection, No pedal edema, No calf tenderness, No normal capillary refill, No pelvis stable , No calf tenderness, No inflammation, No pedal edema, No slow capillary refill , No swelling, No other, No abrasion, No clubbing, No cyanosis, No ecchymosis, No laceration, No no lower extremity edema bilateral, No significant edema, No tenderness, No wound Neurologic/Psychiatric: No foxpro developer II-XII nml as tested, No no motor/sensory deficits, No alert, No normal mood/affect, No oriented x 3, No abnormal cerebellar tests, No abnormal foxpro developer II-XII, No abnormal gait, No aphasia, No EOM palsy, No facial droop, No motor weakness, No sensory deficit, No depressed affect, No disoriented x 3, No other, No grossly intact, No power is 5/5 both on sides Skin: No normal color, No warm/dry, No cyanosis, No cool, No diaphoresis, No damp, No ecchymosis, No jaundice, No mottled, No pallor, No rash, No tattoos/ piercings, No ulcerations, No rash on exposed areas, No ulcerations on exposed areas, No other Results/Procedures: Labs Laboratory Tests 10/11/17 04:35: White Blood Count 7.0, Red Blood Count 3.96L, Hemoglobin 11.5L, Hematocrit 36L, Mean Corpuscular Volume 92, Mean Corpuscular Hemoglobin 29, Mean Corpuscular Hemoglobin Concent 32, Red Cell Distribution Width 16.2H, Platelet Count 197, Mean Platelet Volume 10.3, Neutrophils (%) (Auto) 71, Lymphocytes (%) (Auto) 19 , Monocytes (%) (Auto) 8, Eosinophils (%) (Auto) 2, Basophils (%) (Auto) 0, Neutrophils # (Auto) 5.0, Lymphocytes # (Auto) 1.3, Monocytes # (Auto) 0.6, Eosinophils # (Auto) 0.1, Basophils # (Auto) 0.0, Sodium Level 136, Potassium Level 4.5, Chloride Level 103, Carbon Dioxide Level 23, Anion Gap 10, Blood Urea Nitrogen 34H, Creatinine 1.45H, Estimat Glomerular Filtration Rate 46, BUN/ Creatinine Ratio 23, Glucose Level 114H, Calcium Level 9.8, Phosphorus Level 3.4 , Magnesium Level 1.9 A/P: Assessment/Dx: Lung mass, COPD, shortness of breath, nonsustained ventricular tachycardia, hypomagnesemia, PAD, acute systolic congestive heart failure Plan: Nonsustained ventricular tachycardia: no further episodes overnight. Continue metoprolol 25 mg 3 times a day. Keep potassium over 4 and magnesium over 2. Non-STEMI: Continue aspirin, statin, Plavix. coronary angiography shows severe left main disease with three vessel disease. EF 20%. I spoke to Cardiac surgery at [facility] (Dr Cortez), who accepts the patient for consultation for either Cardiac surgery or high risk PCI. I spoke with Dr Roca and Dr Villalpando who agree with transfer. Acute systolic congestive heart failure: Significantly elevated BNP. continue IV Lasix 40 mg daily. PAD: Continue outpatient medical therapy. kidney insufficiency: Could be secondary to diuresis well decrease the dose of IV Lasix to 40 mg daily. Lung mass/COPD: Defer to primary team. Transfer to Dr Cortez service at [facility] today. Thank you for your consultation. Please call me if you have any questions. Taiwo Nguyen MD, FACP, FACC, FSCAI, FHRS, CCDS Interventional Cardiology Cardiac Electrophysiology Vascular Medicine and Endovascular Interventions Chip NGUYEN MD Oct 11, 2017 8:54 am
--- NOTE | 2017-10-11 08:58 | Cardiology Post Procedure Note ---
Post-Procedure Note Physician (s)/Camera Technician (s) Physician Chip GEE MD Pre-Procedure Diagnosis Pre-Procedure Diagnosis: nstemi, acute systolic chf Post-Procedure Note Procedure Start Date: Oct 11, 2017 Procedure Start Time: 08:00 Name of Procedure: coronary angiography, [facility] Findings/Procedure Note severe distal left main stenosis, severe proximal LAD stenosis, severe proximal LCX stenosis, occluded RCA with collaterals from left coronary system. LVEF 20% with LVEDP 21. Anesthesia Type: Conscious Sedation Estimated blood loss (mL): 10 Contrast Amount: 56 Post-Procedure Diagnosis Post-operative diagnosis: Severe LM and three vessel disease. Ischemic Cardiomyopathy Plan: Transfer to [facility] for Cardiac surgery consultation/high risk PCI Chip GEE MD Oct 11, 2017 8:58 am
[2017-10-11] MEDS ORDERED: PATIENT MAY USE OWN MEDS, ALL PO SCH (09:00)
--- NOTE | 2017-10-11 10:39 | CARDIAC CATHETERIZATION ---
DATE OF SERVICE: CORONARY ANGIOGRAPHY HOSPITALIST: Dr. Villalpando Core Carrier: Dr. Declan Roca 21 Dealer: Taiwo Nguyen MD PERFORMING PHYSICIAN: Taiwo Nguyen MD INDICATION: Non-ST elevation MD, acute systolic congestive heart failure, nonsustained VT. PREOPERATIVE DIAGNOSES: Non-ST elevation myocardial infarction, acute systolic congestive heart failure, nonsustained ventricular tachycardia. POSTOPERATIVE DIAGNOSES: 1. Severe left main and 3-vessel disease. 2. Ischemic cardiomyopathy with an ejection fraction of 20%. HISTORY: The patient is an 86-year-old gentleman who has a history of smoking and COPD. He was found to have a lung mass by Dr. Roca. Dr. Roca was planning to perform an EBUS; however, just before the procedure the patient started to have runs of nonsustained VT; therefore, the procedure was canceled and the patient was admitted to the ICU. The patient was complaining of shortness of breath. Echocardiogram showed a severely reduced ejection fraction. He was treated with aggressive heart failure management with IV Lasix and over 3 liters negative. Cardiac enzymes were positive. Therefore, the working diagnosis was non-ST elevation MD. Coronary angiography was performed this morning for non-ST elevation MD and acute systolic congestive heart failure. PROCEDURES: 1. Coronary angiography. 2. Left heart catheterization. 3. Mynx closure of right femoral artery. COMPLICATIONS: None. SPECIMENS: None. ESTIMATED BLOOD LOSS: 10 mL. ANESTHESIA: Conscious sedation. ANTICOAGULATION: None. CONTRAST DOSE: 56 mL of Omnipaque. FLUOROSCOPY TIME: 3.3 minutes. FLUOROSCOPY DOSE: 474 mGy. PROCEDURE DETAILS: The patient was brought to the mason tender restoration labor after informed consent was taken. All the risks and complications were explained in detail. He was draped and prepped in the usual sterile fashion. Access could not be gained in the right radial artery since the patient had an abnormal Lucho's test. Therefore, access was gained in the right femoral artery with a 6-Hebrew sheath. Coronary angiography was performed with a JR4 catheter and JL4 catheter. Left heart catheterization was performed with a JL4 catheter. FINDINGS: 1. Left main: Heavily calcified with severe distal stenosis. Stenosis severity 70% to 80%. 2. LAD: The LAD is a large transapical vessel with severe calcification in the proximal segment with severe stenosis. Stenosis severity is 90%. There is mid [id number] stenosis as well, which is around 60% to 70% in severity. 3. Left circumflex artery: There is a severe proximal left circumflex artery stenosis. Stenosis severity is 90%. There is an ectatic segment as well. 4. The left circumflex artery is also supplying collaterals to RCA. 5. RCA totally occluded with filling from the left coronary system. 6. Left heart catheterization, aortic pressure 100/70 mmHg. LV pressure 86/6 mmHg. LVDP 21 mmHg. 7. LVEF is 20% with global hypokinesis. No gradient across the aortic valve. LVEF is 15% to 20%. IMPRESSION/CONCLUSION: 1. Severe left main disease with three vessel disease. 2. Ischemic cardiomyopathy with left ventricular ejection fraction of 15% to 20%. 3. I spoke to Dr. Cortez at [facility] (cardiac surgery) who accepts the patient for cardiac surgery consultation for either cardiac surgery or high risk percutaneous coronary intervention. 4. The patient also has a lung mass and history of chronic obstructive pulmonary disease, which will be assessed further with Dr. Cortez's team. Job ID: [id number] DocumentID: [id number] Dictated Date: 10/11/2017 09:15:38 Vendor Management Associate Date: 10/11/2017 10:37:52 Dictated By: AYDEN NGUYEN MD MTDD
== END 2017-10-11 10:50 | disposition short-term general hospital (02) | DRG 280 ==
LOC: SDC 07:23 → ICU 09:15
PROVIDERS: ADMIT Internal Medicine; ATTEND Internal Medicine Critical Care Medicine
PROC: 4A023N7 Measurement of Cardiac Sampling and Pressure, Left Heart, Percutaneous Approach (ICD-10-PCS; principal; 2017-10-11)
PROC: B2111ZZ Fluoroscopy of Multiple Coronary Arteries using Low Osmolar Contrast (ICD-10-PCS; 2017-10-11)
PROC: B2151ZZ Fluoroscopy of Left Heart using Low Osmolar Contrast (ICD-10-PCS; 2017-10-11)
DX: I47.2 Ventricular tachycardia (principal); I50.21 Acute systolic (congestive) heart failure; I21.4 Non-ST elevation (NSTEMI) myocardial infarction; I25.5 Ischemic cardiomyopathy; I25.10 Atherosclerotic heart disease of native coronary artery without angina pectoris; N17.9 Acute kidney failure, unspecified; R91.8 Other nonspecific abnormal finding of lung field; J44.9 Chronic obstructive pulmonary disease, unspecified; E78.00 Pure hypercholesterolemia, unspecified; N40.0 Benign prostatic hyperplasia without lower urinary tract symptoms; K21.9 Gastro-esophageal reflux disease without esophagitis; I73.9 Peripheral vascular disease, unspecified; E83.42 Hypomagnesemia; Z99.81 Dependence on supplemental oxygen; Z87.891 Personal history of nicotine dependence; Z95.820 Peripheral vascular angioplasty status with implants and grafts
CPT/HCPCS: 36415; 71010; 80048; 80053; 83735; 83880; 84100; 84484; 85025; 85610; 85730; 93005; 93306; 93458; 94640